=== PATIENT | male | born 1970 | race Caucasian/White ===

== ENCOUNTER 2017-04-01 15:00 | Emergency (ER) | payer OTHER ==
[~2017-04-01] VITALS: Ht 175.3 cm; Wt 90.0 kg
[2017-04-01 15:21] VITALS: BP 106/76; PULSE 103; RESP 17; TEMP 98.1; O2SAT 98
[2017-04-01 15:24] VITALS: BP 106/76
--- NOTE | 2017-04-01 16:07 | PD ---
HPI . Left thigh injury Chief Complaint: Injury Time Seen by Provider: 15:48 Travel History International Travel<30 days: No Contact w/Intl Traveler<30days: No Traveled to known affect area: No History of Present Illness HPI This patient presents with a chief complaint of a left thigh injury. He states that it was a crushing injury that occurred about noontime. He was crushed between a 1650 pound piece of equipment and the ground. He states that he was probably penned for about 2 minutes. He denies any other injuries. He is able to ambulate. He rates his pain as 4/10 and states that the pain is exacerbated. Pain is relieved by being still. PFSH Past Medical History Medical History: Denies Significant Hx Diminished Hearing: No Tetanus Vaccination: Unknown Influenza Vaccination: Yes ?: Not Past Surgical History Surgical History: No Previous Surgery Social History Alcohol Use: No Tobacco Use: No Substance Use: No Allergies-Medications (Allergen,Severity, Reaction): Coded Allergies: No Known Allergies (Verified Allergy, Unknown, 04/01/17) Reported Meds & Prescriptions Reported Meds & Active Scripts Active Ultram (Tramadol HCl) 50 Mg Tab 50 Mg PO Q4H PRN Review of Systems Except as stated in HPI: all other systems reviewed are Neg Cardiovascular: No: Chest Pain or Discomfort Respiratory: No: Shortness of Breath Musculoskeletal: Positive: Myalgias Skin: Positive Change in Pigmentation Physical Exam Narrative GENERAL: Awake and alert and in no acute distress. SKIN: Warm and dry. HEAD: Atraumatic. Normocephalic. EYES: Pupils equal and round. NECK: Trachea midline. CARDIOVASCULAR: Regular rate and rhythm. RESPIRATORY: No accessory muscle use. MUSCULOSKELETAL: No obvious deformities. Some bruising and swelling of the anterior left thigh. Associated tenderness to palpation. Distally neurovascularly intact. NEUROLOGICAL: Awake and alert. No obvious cranial nerve deficits. Motor grossly within normal limits. Normal speech. PSYCHIATRIC: Appropriate mood and affect; insight and judgment normal. Data Data Last Documented VS Vital Signs Date Time Temp Pulse Resp B/P (MAP) Pulse Ox O2 Delivery O2 Flow Rate FiO2 04/01/17 15:24 106/76 (86) 04/01/17 15:21 98.1 103 17 98 Orders Orders Femur (Ap & Lat/2vws) (04/01/17 15:48) Creatine Kinase (Cpk) (04/01/17 15:48) Labs Laboratory Tests Test 04/01/17 16:05 Total Creatine Kinase 237 U/L MDM Medical Decision Making Medical Screen Exam Complete: Yes Emergency Medical Condition: Yes Differential Diagnosis Differential diagnosis of extremity trauma includes but is not limited to fracture, sprain or strain, dislocation, contusion Narrative Course This patient presents status post a significant crush injury to the left thigh. CK has been ordered to rule out rhabdomyolysis. X-ray of the thigh is pending. I suspect soft tissue injury. CK is normal. X-ray shows no fracture. Diagnosis Primary Impression: Crush injury, thigh Qualified Codes: S77.12XA - Crushing injury of left thigh, initial encounter Patient Instructions: Crush Injury (ED), General Instructions, RICE Therapy (ED ) Additional Instructions: Drink lots of fluids for the next couple of days. Med/Other Pt SpecificInfo: Prescription(s) given Scripts Tramadol (Ultram) 50 Mg Tab 50 MG PO Q4H Y for PAIN, #12 TAB 0 Refills Prov: Bushra Terrell MD 04/01/17 Disposition: 01 DISCHARGE HOME Condition: Stable Bushra Terrell MD Apr 01, 2017 16:07
[2017-04-01] MEDS ORDERED: ULTR50TA5 PO (16:47)
--- NOTE | 2017-04-01 16:47 | RADRPT ---
EXAM DATE/TIME: 04/01/2017 16:25 [facility] COMPARISON: No previous studies available for comparison. INDICATIONS : A large piece of equipment fell on patient. Complains of left hip pain. MEDICAL HISTORY : None. SURGICAL HISTORY : None. ENCOUNTER: Initial ACUITY: 1 day PAIN SCORE: 5/10 LOCATION: Left femur FINDINGS: Two view examination of the left femur demonstrates no evidence of fracture or dislocation. Bony min eralization is normal. The soft tissue structures are intact. CONCLUSION: 1. No acute fracture or dislocation. Tray Beal MD on April 01, 2017 at 16:44 Board Certified Radiologist. This report was verified electronically.
== END 2017-04-01 17:37 | disposition home or self-care (01) ==
LOC: PHED 15:00
DX: S77.12XA Crushing injury of left thigh, initial encounter (principal); W23.0XXA Caught, crushed, jammed, or pinched between moving objects, initial encounter
CPT/HCPCS: 73552; 82550; 99284